=== PATIENT | female | born 1975 | race Caucasian/White ===

== ENCOUNTER → 2024-05-23 09:25 | Outpatient (BNVA) | payer OTHER, SELFPAY | PROVIDERS: Visit Provider Physician Assistant Medical | DX: M77.12 Lateral epicondylitis, left elbow (principal); M77.02 Medial epicondylitis, left elbow | CPT/HCPCS: 99203 ==

== ENCOUNTER → 2024-06-08 11:01 | Outpatient (BNVA) | payer OTHER, SELFPAY | PROVIDERS: PCP Internal Medicine; Visit Provider Physician Assistant Medical | DX: M77.12 Lateral epicondylitis, left elbow (principal); M77.02 Medial epicondylitis, left elbow | CPT/HCPCS: 99213 ==

== ENCOUNTER 2024-06-15 15:00 | Outpatient (RCR) | payer OTHER, SELFPAY ==
--- NOTE | 2024-05-30 14:01 | MHC.OT.EP ---
[address] [phone] Occupational Therapy Plan of Care Patient Name: Zulema Lobato Date of Evaluation: 05/30/24 Diagnosis: Left lateral epicondylitis Pain Location: Mostly pain free at rest Sharp pain w/ use Tenderness to palpate dorsal forearm and lateralm epicondyle Pain Score: 8 Pain Scale Used: Numeric (0 - 10) Aggravating Factors: Forceful gripping, reaching out, sleeping Alleviating Factors: Some relief w/ CFB, ice, anti-inflammatory gel Assessment: 48 yo female strained her elbow while transferring tables at work in March, she continued to work with some pain over the next couple months, but has had no relief. She was seen in last week, given CFB and referred to OT for continued management. On assessment today, signs and symptoms consistent w/ lateral epicondylitis. 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 I anticipate she will do well w/ course of OT. Frequency and Duration: The patient will be seen 2x/wk x 4 weeks Short Term Goals: Ind w/ HEP Ind w/ CFB and trial nighttime wrist orthosis Ind w/ self STM Progress to strengthening exercises Usp Goals: Gross grasp >40lb w/ CFB QuickDASH score <50 pts Pt to report ease w/ bimanual lift and carry >20lb Ind w/ progression of strengthening Treatment Plan: Therapeutic Exercise Therapeutic Activity Home Exercise Program Splinting Patient Education Edema Control ADL Training Ultrasound Iontophoresis MHP Cold Packs Joint Mobilization Soft Tissue Mobilization Kinesiotaping Ionto w/ dexamethasone Electronically Signed By: Thao Marino OTR/L CHT Please Sign and return to therapist. Thank you once again for your referral.
--- NOTE | 2024-07-25 14:35 | MHC.OT.DC ---
[address] [phone] F: [phone] Occupational Therapy Discharge Note Patient Name: Zulema Venturaill Provider: Karla Minor PA-C Diagnosis: Left lateral epicondylitis Date of Evaluation: 05/30/24 Date of Discharge: 07/25/24 Treatments to Date: 5 Discharge Status: Patient Elected to Stop Visit Non-compliance Discharge Summary: Pt was referred to OT w/ left lateral epicondylitis. She had been doing well w/ therapy and overall decreased pain and good follow through w/ HEP and modifications. She had four missed therapy visits and did not follow up for further care after June 15. Electronically Signed By: Thao Marino OTR/L CHT Please Sign and return to therapist, thank you for your referral.
== END 2024-07-25 14:36 | disposition home or self-care (01) ==
LOC: HO.OT 15:00
PROVIDERS: PCP Internal Medicine; Visit Provider Physician Assistant Medical
DX: M77.12 Lateral epicondylitis, left elbow (principal); M77.02 Medial epicondylitis, left elbow
CPT/HCPCS: 97033; 97110; 97140; 97165

== ENCOUNTER → 2024-06-22 10:51 | Outpatient (BNVA) | payer OTHER, SELFPAY | PROVIDERS: PCP Internal Medicine; Visit Provider Physician Assistant Medical | DX: M77.12 Lateral epicondylitis, left elbow (principal) | CPT/HCPCS: 99213 ==

== ENCOUNTER 2024-06-27 17:47 | Outpatient (REF) | payer OTHER, SELFPAY ==
--- NOTE | ~2024-06-27 | MR_ITS ---
EXAMINATION: MRI ELBOW WITHOUT CONTRAST, LEFT CLINICAL INFORMATION: Left elbow pain COMPARISON: None. TECHNIQUE: MRI of the left elbow without contrast is performed on a 1.5 Sammie MR scanner. FINDINGS: There is a small interstitial partial tear at the common extensor tendon origin. The common flexor tendon origin is intact. The triceps, biceps, and brachialis tendon insertions are intact. Medial and lateral collateral ligaments appear intact. No significant joint effusion. No focal articular cartilage defect or loose body. MR/MR elbow LT wo con IMPRESSION: 1. Small interstitial partial tear of the common extensor tendon origin.
== END 2024-06-27 17:48 | disposition home or self-care (01) ==
LOC: HO.MRI 17:47
PROVIDERS: PCP Internal Medicine; Visit Provider Internal Medicine
DX: M25.522 Pain in left elbow (principal)
CPT/HCPCS: 73221

== ENCOUNTER → 2024-07-05 09:35 | Outpatient (BNVA) | payer OTHER, SELFPAY | PROVIDERS: PCP Internal Medicine; Visit Provider Physician Assistant Medical | DX: S56.512D Strain of other extensor muscle, fascia and tendon at forearm level, left arm, subsequent encounter (principal); X58.XXXD Exposure to other specified factors, subsequent encounter | CPT/HCPCS: 99213 ==

== ENCOUNTER 2024-07-25 08:54 | Outpatient (AMB) | payer OTHER, SELFPAY ==
--- NOTE | 2024-07-25 08:56 | MHC.OFFVIS ---
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 DOI 04/05/24. Patient reports she was moving heavy boxes at work and she felt a pulling sensation. She mentions that her pain started off and on but her pain has been getting worse and ongoing. Having off and on numbness on the dorsal aspect of her hand. She also has a burning sensation in her elbow. 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 The patient was referred to the office by [employer] status post an injury on 04/05/24. The patient was attending occupational therapy, with her last session being on 06/15/24. Records show she attended five sessions.? ? This is a work related injury. ? ? While in the office today, the patient reports her injury occurred on 04/05/24 when she was moving heavy boxes at work. She states she felt a popping sensation. She claims the pain began intermittently, but reports her pain has since increased and become ongoing. He also reports intermittent numbness along the dorsal aspect of the left hand accompanied by a burning sensation in the left elbow. ? 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 No ecchymosis, erythema, or edema. Tenderness to over the medial and lateral epicondyles. Tenderness to palpation along the extensor tendon mass. Pain with resisted left wrist extension. Reports occasional numbness and tingling into the left hand in all digits. Radial pulse intact. Assessment & Plan Assessment & Plan (1) Lateral epicondylitis of left elbow: Code(s): M77.12 - Lateral epicondylitis, left elbow Category: Medical (2) Medial epicondylitis of left elbow: Code(s): M77.02 - Medial epicondylitis, left elbow Category: Medical Plan Ms. Lobato is a 48-year-old left hand dominant female who presents in the office today, as a new patient, for an evaluation of left elbow pain. The patient was referred to the office by [employer] status post an injury on 04/05/24. The patient was attending occupational therapy, with her last session being on 06/15/24. Records show she attended five sessions.? ? This is a work-related injury. ? ? While in the office today, the patient reports her injury occurred on 04/05/24 when she was moving heavy boxes at work. She states she felt a popping sensation. She claims the pain began intermittently, but reports her pain has since increased and become ongoing. He also reports intermittent numbness along the dorsal aspect of the left hand accompanied by a burning sensation in the left elbow.? ? The patient will be referred to occupational therapy. I would like for OT to use ultrasound to help manage inflammation. I recommend the use of cupping therapy as this has helped in the past. I would also like them to instruct her on counterforce brace use. The brace is already in her possession. She was given a work note stating no lifting, pushing, or pulling over 2?pounds and no repetitive motion with the left upper extremity. The office will also attempt to get?Workmen?s comp to cover a prescription for compound topical cream. Follow-up will be in six weeks, or sooner if needed. ? ? MRI of the left elbow, obtained on 06/27/24, revealed: Small interstitial partial tear of the common extensor tendon? origin.? Orders: Orders OT Evaluation and Treatment Today M77.02 - Medial epicondylitis, left elbow, M77.12 - Lateral epicondylitis, left elbow Patient Instructions: Scribed by Chantell Rodeen, medical lead, for Ashleigh Quinones PA-C on 07/25/2024 at 9:24 am, EST.? Coding Level of Care Code New Pt Level 3 (84406) Diagnoses Lateral epicondylitis of left elbow M77.12 Medial epicondylitis of left elbow M77.02
[2024-07-25 09:03] VITALS: BMI 36.5
== END 2024-07-25 09:39 | disposition home or self-care (01) ==
PROVIDERS: PCP Internal Medicine; Visit Provider Physician Assistant
DX: M77.12 Lateral epicondylitis, left elbow (principal); M77.02 Medial epicondylitis, left elbow
CPT/HCPCS: 99203

== ENCOUNTER → 2024-07-25 08:54 | Outpatient (BNVA) | payer OTHER, SELFPAY | PROVIDERS: PCP Internal Medicine; Visit Provider Physician Assistant | DX: M77.12 Lateral epicondylitis, left elbow (principal); M77.02 Medial epicondylitis, left elbow | CPT/HCPCS: 99202 ==

== ENCOUNTER 2024-09-05 09:39 | Outpatient (AMB) | payer OTHER, SELFPAY ==
--- NOTE | 2024-09-05 09:50 | MHC.OFFVIS ---
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 DOI 04/05/24. Patient reports when doing OT she feels like it helps however she still tends to have pain. Allergies No Known Allergies Allergy (Verified 09/05/24 09:51) HPI HPI OV LT elbow pain, repetitive overuse WC: Details: 48-year-old left hand dominant female who presents in the office today for a follow-up of left elbow pain, which is a work-related injury that occurred on 04/05/24. I last saw the patient on 07/25/24 when she was referred to occupational therapy and recommended for the OT to use ultrasound to help manage inflammation and use of cupping therapy. The patient was instructed to use counterforce brace. She was provided with a work note stating no lifting, pushing, or pulling over 2 pounds and no repetitive motion with the left upper extremity. While in the office today, the patient reports attending occupational therapy. She feels helpful with OT; however, she continues to have pain in her left elbow. 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 Review of Systems Const All systems reviewed & are unremarkable except as noted in HPI and below Physical Exam Vital Signs: BMI result Body Mass Index 36.5 Const General: cooperative, healthy appearing and no acute distress Orientation/consciousness: patient oriented x3 Resp Effort & Inspection: normal respiratory effort and able to speak in complete sentences Cardio Rate: regular rate Peripheral pulses: Peripheral pulses 2+ throughout GI Palpation (GI): Soft to palpation Skin General skin exam: no rashes or lesions noted Lesions: no lesions Rashes: no rashes Neuro General: patient oriented x3 Extrem Other: Left elbow: Normal to inspection. No ecchymosis, erythema, or edema. Tenderness to over the medial and lateral epicondyles. Tenderness to palpation along the extensor tendon mass. Pain with resisted left wrist extension. Reports occasional numbness and tingling into the left hand in all digits. Radial pulse intact. Office Procedures Joint Injection/Aspiration Joint Injection/Aspiration Primary Site: left tennis elbow Prep: site was prepped using aseptic technique, ethochloride spray was applied and injection warnings given Injected: DepoMedrol, with 1 mL of (2% plain lido ) and other (lateral epicondyle ) Approach Used: other (lateral) Procedure: The patient tolerated the procedure well, but had some pain with the injection and there was some relief with the local anesthesia Coding 85509 - Epicondyle Procedure code (CPT) selection complete Assessment & Plan Assessment & Plan (1) Lateral epicondylitis of left elbow: Code(s): M77.12 - Lateral epicondylitis, left elbow Category: Medical (2) Medial epicondylitis of left elbow: Code(s): M77.02 - Medial epicondylitis, left elbow Category: Medical Plan Ms. Lobato is a 48-year-old left hand dominant female who presents in the office today for a follow-up of left elbow pain, which is a work-related injury that occurred on 04/05/24. I last saw the patient on 07/25/24 when she was referred to occupational therapy and recommended for the OT to use ultrasound to help manage inflammation and use of cupping therapy. The patient was instructed to use counterforce brace. She was provided with a work note stating no lifting, pushing, or pulling over 2 pounds and no repetitive motion with the left upper extremity. While in the office today, the patient reports attending occupational therapy. She feels helpful with OT; however, she continues to have pain in her left elbow. The patient was offered a cortisone injection in the lateral epicondyle of the left elbow with 40 mg of Depo-Medrol. The patient was explained the risks, benefits, and alternatives to receiving this injection. After receiving consent for the injection, the patient had the procedure done while in the office today. The patient tolerated the procedure well with no complication. The patient was encouraged to continue with occupational therapy. Follow up will be PRN, or sooner if needed. Patient Instructions: Scribed by Sara Calvert medical affairs leader, for Ashleigh Quinones PA-C on 09/05/24 at 10:06 am EST. Coding Level of Care Code Est Pt Level 3 (56444) Diagnoses Lateral epicondylitis of left elbow M77.12 Medial epicondylitis of left elbow M77.02 CPT Codes Coding - Joint 2: 61469 - Epicondyle ([id number])
[2024-09-05 09:52] VITALS: BMI 36.5
== END 2024-09-05 10:25 | disposition home or self-care (01) ==
PROVIDERS: PCP Internal Medicine; Visit Provider Physician Assistant
DX: M77.12 Lateral epicondylitis, left elbow (principal); M77.02 Medial epicondylitis, left elbow
CPT/HCPCS: 20551; 99213

== ENCOUNTER → 2024-09-05 09:39 | Outpatient (BNVA) | payer OTHER, SELFPAY | PROVIDERS: PCP Internal Medicine; Visit Provider Physician Assistant | DX: M77.12 Lateral epicondylitis, left elbow (principal); M77.02 Medial epicondylitis, left elbow | CPT/HCPCS: 20551; 99212; J1100; J2003 ==

== ENCOUNTER 2024-09-19 14:30 | Outpatient (RCR) | payer OTHER, SELFPAY ==
--- NOTE | 2024-08-01 15:26 | MHC.OT.EP ---
[address] [phone] Occupational Therapy Plan of Care Patient Name: Zulema Lobato Date of Evaluation: 08/01/24 Diagnosis: Left extensor strain Pain Location: 2/10 resting pain in left lateral epicondyle Radiates down forearm and to medial epicondyle 9/10 sharp pain, sometimes unaggravated Pain Score: 2 Pain Scale Used: Numeric (0 - 10) Aggravating Factors: General every day use (folding laundry, brushing hair, holding coffee cup) Alleviating Factors: Tried CFB, sometimes causes increased pain States she may receive compounded cream from MD Assessment: 48 yo female strained her elbow while transferring tables at work in March, she continued to work with some pain over the next couple months, and was referred to OT for conservative management. She had course of OT and was referred back to then [facility] with persistent left forearm and elbow pain. MRI shows small interstitial partial tear of the common extensor tendon origin. She has been referred back to OT to continue course of therapy. On assessment today, pt reports primary pain in in left lateral epicondyle, radiating into forearm and medial elbow at times. Symptoms exacerbated by gripping and reaching, particularly noting trouble w/ typing and reaching for phone at work. She has been avoiding heavy lifting and repetitive work at home (folding laundry, etc) and continues to follow joint protection recommendations. We will continue outpatient therapy services w/ ultimate goal of decreased pain and increasing strength for daily activities. Frequency and Duration: The patient will be seen 2x/wk for 4 weeks Short Term Goals: Ind w/ HEP for UE stretches and postural strengthening Pt to complete work station modifications to reduce strain on LUE Pt to demo good follow through w/ nighttime resting wrist orthosis Pt to demo good follow through w/ CFB wear for daily activities Jail Goals: Pain free left arm/elbow Left gross grasp >40lb w/ minimal pain Pt to report ease w/ moderate daily activities (laundry, cooking) QuickDASH score <50 pts Treatment Plan: Therapeutic Exercise Therapeutic Activity Home Exercise Program Splinting Patient Education ADL Training Ultrasound MHP Soft Tissue Mobilization Kinesiotaping Nighttime wrist orthosis CFB Electronically Signed By: Thao Marino OTR/L CHT Please Sign and return to therapist. Thank you once again for your referral.
== END 2024-09-19 15:26 | disposition home or self-care (01) ==
LOC: HO.OT 14:30
PROVIDERS: PCP Internal Medicine; Visit Provider Physician Assistant
DX: M77.02 Medial epicondylitis, left elbow (principal); M77.12 Lateral epicondylitis, left elbow
CPT/HCPCS: 97035; 97110; 97140; 97165; 97535; 97760

== ENCOUNTER 2024-12-21 12:55 | Outpatient (RCR) | payer OTHER, SELFPAY | END 2024-12-21 13:56 | disposition home or self-care (01) | LOC: HO.OT 12:55 | PROVIDERS: PCP Internal Medicine; Visit Provider Orthopaedic Surgery | DX: M77.02 Medial epicondylitis, left elbow (principal); M77.12 Lateral epicondylitis, left elbow | CPT/HCPCS: 97035; 97110; 97140; 97165 ==